=== PATIENT | male | born 1955 | race Caucasian/White ===

== ENCOUNTER 2019-06-09 15:46 | Observation (INO) ==
[2019-06-09 16:13] LABS: Basophils % 0.7 %; Eosinophils # 0.3 K/mcL (0.0-0.6); Eosinophils % 5.8 %; Hematocrit 36.2 % (37.5-50.1); Hemoglobin 12.1 g/dL (12.9-16.9); Immature Granulocytes % 0.9 % (0-4); Lymphocytes # 1.1 K/mcL (0.6-4.6); Lymphocytes % 23.8 %; Mean Corpuscular HGB Conc 33.4 g/dL (31.6-35.5); Mean Corpuscular Hemoglobin 30.8 pg (28.0-33.3); Mean Corpuscular Volume 92.1 fL (83.0-100.0); Mean Platelet Volume 10.2 fL (9.4-12.4); Monocytes # 0.5 K/mcL (0.0-1.3); Monocytes % 11.5 %; Neutrophils # 2.6 K/mcL (1.6-8.9); Platelet Count 233 K/mcL (140-400); Red Blood Count 3.93 M/mcL (4.19-5.50); Red Cell Distribution Width 15.5 % (11.5-14.5); Segmented Neutrophils % 57.3 %; White Blood Count 4.5 K/mcL (4.3-11.1)
[2019-06-09 16:18] LABS: Prothrombin Time 11.5 Seconds (9.4-12.1)
[2019-06-09 16:28] LABS: Bilirubin,Urine Negative (Negative); Blood,Urine Negative (Negative); Clarity,Urine Clear (Clear); Color,Urine Yellow (Yellow); Glucose,Urine (UA) Normal (Normal); Ketones,Urine Negative (Negative); Leukocyte Esterase,Urine Negative (Negative); Nitrite,Urine Negative (Negative); Protein,Urine 30 mg/dL (Neg-Trace); Specific Gravity,Urine 1.024 (1.010-1.025); Urobilinogen,Urine Normal (Normal)
[2019-06-09 16:30] LABS: Bacteria,Urine None Seen per hpf (None-Few); Hyaline Casts,Urine None Seen per lpf (None-Few); Squamous Epithelial Cell,Urine Many per lpf (None-Few); WBC,Urine 0-3 per hpf (0-3)
[2019-06-09 16:31] LABS: BUN/Creatinine Ratio 15 (6-26); Blood Urea Nitrogen 15 mg/dL (8-23); Calcium 9.1 mg/dL (8.6-10.3); Carbon Dioxide 22 mEq/L (23-29); Chloride 104 mEq/L (98-107); Glucose 133 mg/dL (70-105); Osmolality,Calculated 289 (280-300); Potassium 3.4 mEq/L (3.5-5.1); Sodium 138 mEq/L (136-145); eGFR For African Americans > 60 (> 60); eGFR For Non-African Americans > 60 (> 60)
[2019-06-09 16:32] LABS: Troponin I < 0.03 ng/mL (< 0.04)
[2019-06-09] MEDS ORDERED: Naloxone 0.4 MG/ML INJ IVP PRN (18:01)
[2019-06-09] MEDS ORDERED: Gadolinium Contrast Agent (WT Based) IV PRN (18:04)
[2019-06-09] MEDS: *HR* Heparin 5,000 UNIT/ML VIAL SQ SCH (21:36)
[2019-06-09] MEDS: Sacubitril/Valsartan 24/26 MG 1 TABLET PO SCH (21:36)
[2019-06-10] MEDS: *HR* Heparin 5,000 UNIT/ML VIAL SQ SCH ×3 (06:14→20:34)
[2019-06-10] MEDS ORDERED: Gadolinium Contrast Agent (WT Based) IV PRN (08:29)
[2019-06-10 09:21] LABS: Eosinophils # 0.2 K/mcL (0.0-0.6); Eosinophils % 5.4 %; Hemoglobin 11.3 g/dL (12.9-16.9); Immature Granulocytes % 0.3 % (0-4); Lymphocytes # 0.6 K/mcL (0.6-4.6); Lymphocytes % 19.5 %; Mean Corpuscular HGB Conc 33.2 g/dL (31.6-35.5); Mean Corpuscular Hemoglobin 30.5 pg (28.0-33.3); Mean Corpuscular Volume 91.6 fL (83.0-100.0); Mean Platelet Volume 10.5 fL (9.4-12.4); Monocytes # 0.4 K/mcL (0.0-1.3); Monocytes % 12.1 %; Neutrophils # 1.9 K/mcL (1.6-8.9); Platelet Count 166 K/mcL (140-400); Red Blood Count 3.71 M/mcL (4.19-5.50); Red Cell Distribution Width 15.7 % (11.5-14.5); Segmented Neutrophils % 61.7 %; White Blood Count 3.1 K/mcL (4.3-11.1)
[2019-06-10 09:39] LABS: BUN/Creatinine Ratio 11 (6-26); Blood Urea Nitrogen 10 mg/dL (8-23); Calcium 8.7 mg/dL (8.6-10.3); Carbon Dioxide 25 mEq/L (23-29); Chloride 105 mEq/L (98-107); Glucose 109 mg/dL (70-105); Osmolality,Calculated 286 (280-300); Sodium 138 mEq/L (136-145); eGFR For African Americans > 60 (> 60); eGFR For Non-African Americans > 60 (> 60)
[2019-06-10] MEDS: Sacubitril/Valsartan 24/26 MG 1 TABLET PO SCH ×2 (09:42→20:34)
[2019-06-10] MEDS: Aspirin Enteric Coated 81 MG Tablet PO SCH (09:42)
[2019-06-10] MEDS: carvediloL 6.25 MG TABLET PO SCH ×2 (09:42→17:23)
[2019-06-10] MEDS ORDERED: Acetaminophen 325 MG TABLET PO PRN (10:24)
[2019-06-10 18:22] LABS: Albumin 3.7 g/dL (3.5-5.7); Albumin/Globulin Ratio 1.1 (1.1-2.2); Bilirubin,Direct 0.3 mg/dL (0.0-0.2); Bilirubin,Indirect 0.7 mg/dL (0.0-1.0); Calcium 9.1 mg/dL (8.6-10.3); Globulin 3.4 g/dL (2.4-3.5); Total Protein 7.1 g/dL (6.4-8.9)
[2019-06-11] MEDS: *HR* Heparin 5,000 UNIT/ML VIAL SQ SCH ×2 (04:56→13:21)
[2019-06-11 05:37] LABS: Basophils % 0.9 %; Eosinophils # 0.2 K/mcL (0.0-0.6); Eosinophils % 5.4 %; Lymphocytes # 0.7 K/mcL (0.6-4.6); Lymphocytes % 19.7 %; Mean Corpuscular HGB Conc 32.4 g/dL (31.6-35.5); Mean Corpuscular Volume 95.8 fL (83.0-100.0); Mean Platelet Volume 10.9 fL (9.4-12.4); Monocytes # 0.5 K/mcL (0.0-1.3); Monocytes % 13.7 %; Platelet Count 149 K/mcL (140-400); Red Blood Count 3.55 M/mcL (4.19-5.50); Red Cell Distribution Width 15.5 % (11.5-14.5); Segmented Neutrophils % 60.3 %; White Blood Count 3.4 K/mcL (4.3-11.1)
[2019-06-11 05:57] LABS: BUN/Creatinine Ratio 12 (6-26); Blood Urea Nitrogen 12 mg/dL (8-23); Calcium 8.6 mg/dL (8.6-10.3); Carbon Dioxide 26 mEq/L (23-29); Chloride 105 mEq/L (98-107); Glucose 95 mg/dL (70-105); Osmolality,Calculated 290 (280-300); Potassium 3.1 mEq/L (3.5-5.1); Sodium 140 mEq/L (136-145); eGFR For African Americans > 60 (> 60); eGFR For Non-African Americans > 60 (> 60)
[2019-06-11] MEDS: carvediloL 6.25 MG TABLET PO SCH (08:12)
[2019-06-11] MEDS: Sacubitril/Valsartan 24/26 MG 1 TABLET PO SCH (08:12)
[2019-06-11] MEDS: Aspirin Enteric Coated 81 MG Tablet PO SCH (08:13)
[2019-06-11 13:35] VITALS: BP 160/86
== END 2019-06-11 14:59 | disposition home or self-care (01) ==
LOC: EMEROOARM 15:46 → 2ANU 15:46
PROVIDERS: ADMIT Internal Medicine; ATTEND Internal Medicine